=== PATIENT | male | born 1985 ===

== ENCOUNTER 2023-04-02 18:19 | Inpatient (IN) | payer OTHER, SELFPAY ==
[2023-04-02 19:33] LABS: MANUAL DIFF FLAG NO
[2023-04-02 19:38] LABS: Basophils Percent Auto 0.4 % (0-2); Eosinophils Absolute Auto 0.5 X10*3/uL (0.0-0.4); Eosinophils Percent Auto 5.4 % (0-4); Hematocrit 47.5 % (42.0-52.0); Hemoglobin 16.1 g/dl (14.0-18.0); Imm Gran Abs Auto 0.08 X10*3/uL (0.00-0.03); Imm Gran Pct Auto 0.8 % (0.0-0.4); Lymphocytes Absolute Auto 2.9 X10*3/uL (1.2-4.9); Lymphocytes Percent Auto 30.1 % (20-40); Mean Corpuscular HGB Conc 33.9 g/dl (31.0-36.0); Mean Corpuscular Volume 94.4 fL (80.0-98.0); Mean Platelet Volume 10.5 fL (9.4-12.4); Monocytes Absolute Auto 0.7 X10*3/uL (0.1-1.2); Monocytes Percent Auto 7.2 % (2-11); Neutrophils Absolute Auto 5.4 x10*3/uL (2.0-8.3); Neutrophils Percent Auto 56.1 % (45-73); Platelet Count 207 X10*3/uL (160-400); Red Blood Count 5.03 X10*6/uL (4.60-5.80); White Blood Count 9.7 X10*3/uL (4.8-10.8)
[2023-04-02 20:50] VITALS: BP 144/70; PULSE 87; RESP 18; TEMP 36.7; O2SAT 100
[2023-04-02] MEDS: Gabapentin 300 MG CAPSULE PO (21:15)
[2023-04-02] MEDS: hydrOXYzine HCL 50 MG TABLET PO (21:15)
[2023-04-02] MEDS: clonazePAM 1 MG TABLET PO (21:15)
[2023-04-02] MEDS: cloNIDine HCL 0.1 MG TABLET PO (21:15)
[2023-04-02 21:17] VITALS: BMI 18.3
[2023-04-02] MEDS: diphenhydrAMINE HCL 25 MG CAPSULE 50 MG PO (21:26)
[2023-04-02] MEDS: Buprenorphine HCL 8 MG TAB.SUBL SUBLINGUAL (21:26)
[2023-04-02] MEDS: hydrOXYzine HCL 25 MG TABLET PO (23:29)
[2023-04-02] MEDS: traZODone HCL 50 MG TABLET PO (23:29)
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
[2023-04-03 08:00] VITALS: BP 105/74; PULSE 97; RESP 18; TEMP 36.3; O2SAT 99
[2023-04-03] MEDS: DULoxetine HCl 30 MG CAPSULE.DR PO (08:44)
[2023-04-03] MEDS: cloNIDine HCL 0.1 MG TABLET PO ×3 (08:45→21:51)
[2023-04-03] MEDS: Buprenorphine HCL 8 MG TAB.SUBL 16 MG SUBLINGUAL (08:45)
[2023-04-03] MEDS: Gabapentin 300 MG CAPSULE PO (08:46)
[2023-04-03] MEDS: hydrOXYzine HCL 50 MG TABLET PO ×2 (08:46→21:51)
[2023-04-03] MEDS: clonazePAM 1 MG TABLET PO ×2 (08:46→21:51)
[2023-04-03] MEDS: Nicotine Polacrilex 2 MG GUM 4 MG BUCCAL ×3 (09:37→17:39)
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
[2023-04-03] MEDS: Gabapentin 400 MG CAPSULE PO ×2 (14:45→21:51)
[2023-04-03] MEDS: Acetaminophen 325 MG TABLET 650 MG PO (17:38)
[2023-04-03 21:40] VITALS: BP 132/58; PULSE 90; RESP 18; TEMP 36.1; O2SAT 99
[2023-04-03] MEDS: traZODone HCL 50 MG TABLET PO (21:51)
[2023-04-03] MEDS: Buprenorphine HCL 8 MG TAB.SUBL SUBLINGUAL (21:51)
[2023-04-03] MEDS: diphenhydrAMINE HCL 25 MG CAPSULE 50 MG PO (21:52)
[2023-04-03] MEDS: hydrOXYzine HCL 25 MG TABLET PO (21:52)
[2023-04-04 08:00] VITALS: BP 99/54; PULSE 72; RESP 16; TEMP 36.6; O2SAT 98
[2023-04-04] MEDS: hydrOXYzine HCL 50 MG TABLET PO ×2 (08:43→21:18)
[2023-04-04] MEDS: clonazePAM 1 MG TABLET PO ×2 (08:43→21:19)
[2023-04-04] MEDS: DULoxetine HCl 30 MG CAPSULE.DR PO (08:43)
[2023-04-04] MEDS: Gabapentin 400 MG CAPSULE PO ×3 (08:43→21:18)
[2023-04-04] MEDS: cloNIDine HCL 0.1 MG TABLET PO ×3 (08:43→21:23)
[2023-04-04] MEDS: Buprenorphine HCL 8 MG TAB.SUBL 16 MG SUBLINGUAL (08:44)
--- NOTE | 2023-04-04 08:57 | P.PNPSI_ITS ---
Subjective Subjective Date of Service: 04/04/23 Reason For Visit: Depression Subjective Notes: Conditional Voluntary and 3 Day Healthcare Proxy: No Guardianship: No Medical Problems Affecting Mental Status: No Interim History: Patient was seen and discussed in rounds today. Records and plans were reviewed. He refused his admission blood workup because he is very afraid of needles. He was recently hospitalized and did have blood work and denied any abnormalities being reported to him. He states that the increase of gabapentin by the hospitalists was slightly beneficial. He continues to complex of lot of depression. He has been visible with some social interactions. No active SI reported. Eating adequately. No changes were made today Medication Compliance: Yes Side effects from medications: No Attending Groups: Intermittent Review of Systems Review of Systems Back pain Yes all other systems are reviewed and are negative Mental Status Exam Mental Status Exam Narrative: In today's visit he is alert, oriented and minimally interactive. Soft-spoken speech. Minimal eye contact. Affect is subdued and constricted. No signs of psychosis. No delusions. No active SI. Cognitively intact. Judgment is intact Diagnostics Vital Signs (24Hr): Vital Signs - 24 hr 04/03/23 21:40 Temperature 96.9 F Pulse Rate 90 Respiratory Rate 18 Blood Pressure 132/58 L Pulse Oximetry 99 Oxygen Delivery Method Room Air BMI result Body Mass Index 18.3 Labs 04/02/23 19:24 Labs: Laboratory Results - last 48 hr 04/02/23 19:24 WBC 9.7 RBC 5.03 Hgb 16.1 Hct 47.5 MCV 94.4 MCH 32.0 MCHC 33.9 RDW 13.0 Plt Count 207 MPV 10.5 Immature Gran % (Auto) 0.8 H Neut % (Auto) 56.1 Lymph % (Auto) 30.1 [place] % (Auto) 7.2 Eos % (Auto) 5.4 H Baso % (Auto) 0.4 Lymph # (Auto) 2.9 [place] # (Auto) 0.7 Eos # (Auto) 0.5 H Baso # (Auto) 0.0 Abs Immat Gran (auto) 0.08 H Absolute Neuts (auto) 5.4 Absolute Nucleated RBC 0.000 Nucleated RBC % (auto) 0.0 Medications Medications Current Medications Acetaminophen (Acetaminophen 325 Mg Tablet) 650 mg PO Q6H PRN PRN Reason: Headache/Pain Mild Scale (1-3) Last Admin: 04/03/23 17:38 Dose: 650 mg Al Hydroxide/Mg Hydroxide (Magnesium Hydrox/Alum Hydrox 30 Ml Oral.Susp) 30 ml PO Q6H PRN PRN Reason: Heartburn/Nausea Albuterol Sulfate (Albuterol Sulfate 90 Mcg 8 Gm Inhaler) 2 puff INHALE Q4H PRN PRN Reason: Shortness Of Breath Or Wheezing Buprenorphine HCl (Buprenorphine Hcl 8 Mg Tab.Subl) 8 mg SUBLINGUAL BEDTIME [facility] Last Admin: 04/03/23 21:51 Dose: 8 mg Buprenorphine HCl (Buprenorphine Hcl 8 Mg Tab.Subl) 16 mg SUBLINGUAL DAILY [facility] Last Admin: 04/04/23 08:44 Dose: 16 mg Clonazepam (Clonazepam 1 Mg Tablet) 1 mg PO BID [facility] Last Admin: 04/04/23 08:43 Dose: 1 mg Clonidine HCl (Clonidine Hcl 0.1 Mg Tablet) 0.1 mg PO TID [facility]; Protocol Last Admin: 04/04/23 08:43 Dose: 0.1 mg Diphenhydramine HCl (Diphenhydramine Hcl 25 Mg Capsule) 50 mg PO BEDTIME PRN PRN Reason: Insomnia Last Admin: 04/03/23 21:52 Dose: 50 mg Duloxetine HCl (Duloxetine Hcl 30 Mg Capsule.Dr) 30 mg PO DAILY [facility] Last Admin: 04/04/23 08:43 Dose: 30 mg Gabapentin (Gabapentin 400 Mg Capsule) 400 mg PO TID [facility] Last Admin: 04/04/23 08:43 Dose: 400 mg Hydroxyzine HCl (Hydroxyzine Hcl 25 Mg Tablet) 25 mg PO Q6H PRN PRN Reason: Anxiety Last Admin: 04/03/23 21:52 Dose: 25 mg Hydroxyzine HCl (Hydroxyzine Hcl 50 Mg Tablet) 50 mg PO BID [facility] Last Admin: 04/04/23 08:43 Dose: 50 mg Magnesium Hydroxide (Milk Of Magnesia 30 Ml Oral.Susp) 30 ml PO DAILY PRN PRN Reason: Constipation Nicotine (Nicotine 21 Mg Patch.Td24) 21 mg TRANSDERMA DAILY PRN PRN Reason: smoking cessation Nicotine Polacrilex (Nicotine Polacrilex 2 Mg Gum) 4 mg BUCCAL Q2H PRN PRN Reason: Nicotine Cravings Last Admin: 04/03/23 17:39 Dose: 4 mg Nicotine Polacrilex (Nicotine Polacrilex 2 Mg Gum) 4 mg BUCCAL Q2H PRN PRN Reason: nicotine cravings Pt Own ( Lisdexamfetamine [ Vyvanse] 20 Mg Capsule) 20 mg PO DAILY [facility] Last Admin: 04/04/23 08:42 Dose: 20 mg Olanzapine (Olanzapine 5 Mg Tablet) 5 mg PO TID PRN PRN Reason: agitation Trazodone HCl (Trazodone Hcl 50 Mg Tablet) 50 mg PO BEDTIME MRX1 PRN PRN Reason: Insomnia Last Admin: 04/03/23 21:51 Dose: 50 mg Allergies Allergies Allergy/AdvReac Type Severity Reaction Status Date / Time buprenorphine [From Suboxone] Allergy Unknown Verified 04/02/23 18:37 ibuprofen [From Motrin] Allergy Unknown Verified 04/02/23 18:37 naloxone [From Suboxone] Allergy Unknown Verified 04/02/23 18:37 naltrexone [From Vivitrol] Allergy Unknown Verified 04/02/23 18:37 Penicillins Allergy Unknown Verified 04/02/23 18:37 Assessment & Plan Assessment & Plan (1) Major depression: Status: Acute Code(s): F32.9 - Major depressive disorder, single episode, unspecified Plan 38-year-old man admitted to [facility] for psychiatric care Depression/ anxiety Management as per psychiatric team Asthma Albuterol as needed Chronic back pain Will increase gabapentin to 400 mg t.i.d. May use warm or cool compress to back for pain relief 04/04: Continue current regimen and plans Reason for continued inpatient stay Substantial Risk for: harm to self Time Spent With Patient Time: Total time managing care of this patient today ____ minutes.
[2023-04-04] MEDS: Nicotine Polacrilex 2 MG GUM 4 MG BUCCAL (09:55)
[2023-04-04] MEDS: Lidocaine 4 % Patch ADH..PATCH 1 PATCH TRANSDERMA (09:56)
[2023-04-04] MEDS: Acetaminophen 325 MG TABLET 650 MG PO (11:54)
[2023-04-04 14:05] VITALS: BP 116/64
[2023-04-04 21:05] VITALS: BP 107/62; PULSE 91; RESP 18; TEMP 36.6; O2SAT 97
[2023-04-04] MEDS: diphenhydrAMINE HCL 25 MG CAPSULE 50 MG PO (21:17)
[2023-04-04] MEDS: hydrOXYzine HCL 25 MG TABLET PO (21:19)
[2023-04-04] MEDS: traZODone HCL 50 MG TABLET PO (21:19)
[2023-04-04] MEDS: Buprenorphine HCL 8 MG TAB.SUBL SUBLINGUAL (21:19)
[2023-04-05 08:26] VITALS: BP 115/72; PULSE 72; RESP 20; TEMP 36.6; O2SAT 96
[2023-04-05] MEDS: Acetaminophen 325 MG TABLET 650 MG PO ×2 (08:52→20:58)
[2023-04-05] MEDS: cloNIDine HCL 0.1 MG TABLET PO ×3 (08:52→20:44)
[2023-04-05] MEDS: hydrOXYzine HCL 50 MG TABLET PO ×2 (08:52→20:43)
[2023-04-05] MEDS: DULoxetine HCl 30 MG CAPSULE.DR PO (08:52)
[2023-04-05] MEDS: Gabapentin 400 MG CAPSULE PO (08:52)
[2023-04-05] MEDS: clonazePAM 1 MG TABLET PO ×2 (08:52→20:44)
[2023-04-05] MEDS: Buprenorphine HCL 8 MG TAB.SUBL 16 MG SUBLINGUAL (08:53)
--- NOTE | 2023-04-05 10:30 | P.PNPSI_ITS ---
Subjective Subjective Date of Service: 04/05/23 Reason For Visit: Depression Subjective Notes: Conditional Voluntary and 3 Day Healthcare Proxy: No Guardianship: No Medical Problems Affecting Mental Status: No Interim History: Patient was seen and discussed in rounds today. Records and plans were reviewed. He talked about a difficult phone call with an ex-girlfriend who has the caballero to his apartment and he is anxious about the day of discharge and getting his caballero back. Staff at suggested that he should probably stop calling her for now until he knows his plans more clearly after tomorrow. He continues to complain of back pain. Gabapentin will be increased to 600 mg t.i.d.. He also continues to feel depressed over his situation. No other complaints. No other changes were made today Medication Compliance: Yes Side effects from medications: No Attending Groups: Intermittent Review of Systems Review of Systems Back pain Yes all other systems are reviewed and are negative Diagnostics Vital Signs (24Hr): Vital Signs - 24 hr 04/04/23 14:05 04/04/23 21:05 04/05/23 08:26 Temperature 97.8 F 97.9 F Pulse Rate 91 72 Respiratory Rate 18 20 Blood Pressure 116/64 107/62 115/72 Pulse Oximetry 97 96 Oxygen Delivery Method Room Air Room Air BMI result Body Mass Index 18.3 Labs 04/02/23 19:24 Medications Medications Current Medications Acetaminophen (Acetaminophen 325 Mg Tablet) 650 mg PO Q6H PRN PRN Reason: Headache/Pain Mild Scale (1-3) Last Admin: 04/05/23 08:52 Dose: 650 mg Al Hydroxide/Mg Hydroxide (Magnesium Hydrox/Alum Hydrox 30 Ml Oral.Susp) 30 ml PO Q6H PRN PRN Reason: Heartburn/Nausea Albuterol Sulfate (Albuterol Sulfate 90 Mcg 8 Gm Inhaler) 2 puff INHALE Q4H PRN PRN Reason: Shortness Of Breath Or Wheezing Buprenorphine HCl (Buprenorphine Hcl 8 Mg Tab.Subl) 8 mg SUBLINGUAL BEDTIME [facility] Last Admin: 04/04/23 21:19 Dose: 8 mg Buprenorphine HCl (Buprenorphine Hcl 8 Mg Tab.Subl) 16 mg SUBLINGUAL DAILY [facility] Last Admin: 04/05/23 08:53 Dose: 16 mg Clonazepam (Clonazepam 1 Mg Tablet) 1 mg PO BID [facility] Last Admin: 04/05/23 08:52 Dose: 1 mg Clonidine HCl (Clonidine Hcl 0.1 Mg Tablet) 0.1 mg PO TID [facility]; Protocol Last Admin: 04/05/23 08:52 Dose: 0.1 mg Diphenhydramine HCl (Diphenhydramine Hcl 25 Mg Capsule) 50 mg PO BEDTIME PRN PRN Reason: Insomnia Last Admin: 04/04/23 21:17 Dose: 50 mg Duloxetine HCl (Duloxetine Hcl 30 Mg Capsule.Dr) 30 mg PO DAILY [facility] Last Admin: 04/05/23 08:52 Dose: 30 mg Hydroxyzine HCl (Hydroxyzine Hcl 25 Mg Tablet) 25 mg PO Q6H PRN PRN Reason: Anxiety Last Admin: 04/04/23 21:19 Dose: 25 mg Hydroxyzine HCl (Hydroxyzine Hcl 50 Mg Tablet) 50 mg PO BID [facility] Last Admin: 04/05/23 08:52 Dose: 50 mg Lidocaine (Lidocaine 4 % Patch Adh..Patch) 1 patch TRANSDERMA DAILY PRN; Protocol PRN Reason: Pain, Moderate(Pain Scale 4-6) Last Admin: 04/04/23 09:56 Dose: 1 patch Magnesium Hydroxide (Milk Of Magnesia 30 Ml Oral.Susp) 30 ml PO DAILY PRN PRN Reason: Constipation Nicotine (Nicotine 21 Mg Patch.Td24) 21 mg TRANSDERMA DAILY PRN PRN Reason: smoking cessation Nicotine Polacrilex (Nicotine Polacrilex 2 Mg Gum) 4 mg BUCCAL Q2H PRN PRN Reason: Nicotine Cravings Last Admin: 04/04/23 09:55 Dose: 4 mg Nicotine Polacrilex (Nicotine Polacrilex 2 Mg Gum) 4 mg BUCCAL Q2H PRN PRN Reason: nicotine cravings Pt Own ( Lisdexamfetamine [ Vyvanse] 20 Mg Capsule) 20 mg PO DAILY [facility] Last Admin: 04/05/23 09:04 Dose: 20 mg Olanzapine (Olanzapine 5 Mg Tablet) 5 mg PO TID PRN PRN Reason: agitation Trazodone HCl (Trazodone Hcl 50 Mg Tablet) 50 mg PO BEDTIME MRX1 PRN PRN Reason: Insomnia Last Admin: 04/04/23 21:19 Dose: 50 mg Allergies Allergies Allergy/AdvReac Type Severity Reaction Status Date / Time buprenorphine [From Suboxone] Allergy Unknown Verified 04/02/23 18:37 ibuprofen [From Motrin] Allergy Unknown Verified 04/02/23 18:37 naloxone [From Suboxone] Allergy Unknown Verified 04/02/23 18:37 naltrexone [From Vivitrol] Allergy Unknown Verified 04/02/23 18:37 Penicillins Allergy Unknown Verified 04/02/23 18:37 Assessment & Plan Assessment & Plan (1) Major depression: Status: Acute Code(s): F32.9 - Major depressive disorder, single episode, unspecified Plan 38-year-old man admitted to for psychiatric care Depression/ anxiety Management as per psychiatric team Asthma Albuterol as needed Chronic back pain Will increase gabapentin to 400 mg t.i.d. May use warm or cool compress to back for pain relief 04/04: Continue current regimen and plans 04/05: Continue current regimen and plans. Increase gabapentin to 600 mg t.i.d. Reason for continued inpatient stay Substantial Risk for: harm to self Time Spent With Patient Time: Total time managing care of this patient today ____ minutes.
[2023-04-05] MEDS: Gabapentin 300 MG CAPSULE 600 MG PO ×2 (14:42→20:44)
[2023-04-05] MEDS: Buprenorphine HCL 8 MG TAB.SUBL SUBLINGUAL (20:42)
[2023-04-05] MEDS: traZODone HCL 50 MG TABLET PO ×2 (20:43→22:34)
[2023-04-05] MEDS: diphenhydrAMINE HCL 25 MG CAPSULE 50 MG PO (20:44)
[2023-04-05] MEDS: Lidocaine 4 % Patch ADH..PATCH 1 PATCH TRANSDERMA (20:57)
[2023-04-05] MEDS: Nicotine Polacrilex 2 MG GUM 4 MG BUCCAL (20:58)
[2023-04-05 21:03] VITALS: BP 108/60; PULSE 96; TEMP 36.6; O2SAT 98
[2023-04-05] MEDS: hydrOXYzine HCL 25 MG TABLET PO (22:34)
[2023-04-06] MEDS: clonazePAM 1 MG TABLET PO ×2 (08:13→20:37)
[2023-04-06] MEDS: hydrOXYzine HCL 50 MG TABLET PO ×2 (08:13→20:30)
[2023-04-06] MEDS: Gabapentin 300 MG CAPSULE 600 MG PO ×3 (08:13→20:36)
[2023-04-06] MEDS: cloNIDine HCL 0.1 MG TABLET PO ×3 (08:13→20:36)
[2023-04-06] MEDS: DULoxetine HCl 30 MG CAPSULE.DR PO (08:13)
[2023-04-06] MEDS: Buprenorphine HCL 8 MG TAB.SUBL 16 MG SUBLINGUAL (08:13)
[2023-04-06 08:54] VITALS: BP 134/76; PULSE 80; RESP 18; TEMP 36.2; O2SAT 100
--- NOTE | 2023-04-06 09:58 | HO.PSYCHPN ---
Subjective Subjective Date of Service: 04/06/23 Reason For Visit: Depression Subjective Notes: 3 Day Interim History: Reviewed in team and . Patient reports feeling depressed and anxious today. Pt stated, I'm sad because my girlfriend cheated on me . He denies suicidal ideation; stated, I tried to stab myself because my girlfriend told me to do it. It was wrong, I shouldn't have dont it. The knife didn't cut me or anything. I want to live; I want to have my life back and someone to love me. I also wouldn't kill myself because I don't want to go to hel . Patient reports he is looking forward to discharge because he would like to use my section 8 housing voucher since I haven't been looking for new places . He reports he plans on following up with his outpatient psychiatric providers. Medication Compliance: Yes Side effects from medications: No Attending Groups: Intermittent Review of Systems Constitutional: Reports as per HPI Eyes: Reports as per HPI Reports as per HPI Cardiovascular: Reports as per HPI Respiratory: Reports as per HPI Gastrointestinal: Reports as per HPI Genitourinary: Reports as per HPI Musculoskeletal: Reports as per HPI Skin/Breast: Reports as per HPI Reports as per HPI Psychiatric: Reports as per HPI Endocrine: Reports as per HPI Hematologic/Lymphatic: Reports as per HPI Allergic/Immunologic: Reports as per HPI Mental Status Exam Mental Status Exam Narrative: Pt is alert and oriented; behavior is cooperative, friendly and calm; dressed in casual attire; mood is described as depressed ; eye contact appropriate; Speech is normal rate, volume and prosody and not pressured; no psychomotor agitation/retardation present; thought process is organized and goal directed; Thought content is on tx; otherwise pertinent to relevant topics and without any delusional content, paranoid ideations or grandiosity; denies SI/HI. There is no evidence of perceptual disturbance. Patients insight and judgment are fair. Diagnostics Vital Signs (24Hr): Vital Signs - 24 hr 04/05/23 21:03 04/06/23 08:54 Temperature 97.8 F 97.2 F Pulse Rate 96 80 Respiratory Rate 18 Blood Pressure 108/60 134/76 Pulse Oximetry 98 100 Oxygen Delivery Method Room Air Room Air BMI result Body Mass Index 18.3 Labs 04/02/23 19:24 Medications Medications Current Medications Acetaminophen (Acetaminophen 325 Mg Tablet) 650 mg PO Q6H PRN PRN Reason: Headache/Pain Mild Scale (1-3) Last Admin: 04/05/23 20:58 Dose: 650 mg Al Hydroxide/Mg Hydroxide (Magnesium Hydrox/Alum Hydrox 30 Ml Oral.Susp) 30 ml PO Q6H PRN PRN Reason: Heartburn/Nausea Albuterol Sulfate (Albuterol Sulfate 90 Mcg 8 Gm Inhaler) 2 puff INHALE Q4H PRN PRN Reason: Shortness Of Breath Or Wheezing Buprenorphine HCl (Buprenorphine Hcl 8 Mg Tab.Subl) 8 mg SUBLINGUAL BEDTIME [facility] Last Admin: 04/05/23 20:42 Dose: 8 mg Buprenorphine HCl (Buprenorphine Hcl 8 Mg Tab.Subl) 16 mg SUBLINGUAL DAILY [facility] Last Admin: 04/06/23 08:13 Dose: 16 mg Clonazepam (Clonazepam 1 Mg Tablet) 1 mg PO BID [facility] Last Admin: 04/06/23 08:13 Dose: 1 mg Clonidine HCl (Clonidine Hcl 0.1 Mg Tablet) 0.1 mg PO TID [facility]; Protocol Last Admin: 04/06/23 08:13 Dose: 0.1 mg Diphenhydramine HCl (Diphenhydramine Hcl 25 Mg Capsule) 50 mg PO BEDTIME PRN PRN Reason: Insomnia Last Admin: 04/05/23 20:44 Dose: 50 mg Duloxetine HCl (Duloxetine Hcl 30 Mg Capsule.Dr) 30 mg PO DAILY [facility] Last Admin: 04/06/23 08:13 Dose: 30 mg Gabapentin (Gabapentin 300 Mg Capsule) 600 mg PO TID [facility] Last Admin: 04/06/23 08:13 Dose: 600 mg Hydroxyzine HCl (Hydroxyzine Hcl 25 Mg Tablet) 25 mg PO Q6H PRN PRN Reason: Anxiety Last Admin: 04/05/23 22:34 Dose: 25 mg Hydroxyzine HCl (Hydroxyzine Hcl 50 Mg Tablet) 50 mg PO BID [facility] Last Admin: 04/06/23 08:13 Dose: 50 mg Lidocaine (Lidocaine 4 % Patch Adh..Patch) 1 patch TRANSDERMA DAILY PRN; Protocol PRN Reason: Pain, Moderate(Pain Scale 4-6) Last Admin: 04/05/23 20:57 Dose: 1 patch Magnesium Hydroxide (Milk Of Magnesia 30 Ml Oral.Susp) 30 ml PO DAILY PRN PRN Reason: Constipation Nicotine (Nicotine 21 Mg Patch.Td24) 21 mg TRANSDERMA DAILY PRN PRN Reason: smoking cessation Nicotine Polacrilex (Nicotine Polacrilex 2 Mg Gum) 4 mg BUCCAL Q2H PRN PRN Reason: Nicotine Cravings Last Admin: 04/05/23 20:58 Dose: 4 mg Nicotine Polacrilex (Nicotine Polacrilex 2 Mg Gum) 4 mg BUCCAL Q2H PRN PRN Reason: nicotine cravings Pt Own ( Lisdexamfetamine [ Vyvanse] 20 Mg Capsule) 20 mg PO DAILY [facility] Last Admin: 04/06/23 08:12 Dose: 20 mg Olanzapine (Olanzapine 5 Mg Tablet) 5 mg PO TID PRN PRN Reason: agitation Trazodone HCl (Trazodone Hcl 50 Mg Tablet) 50 mg PO BEDTIME MRX1 PRN PRN Reason: Insomnia Last Admin: 04/05/23 22:34 Dose: 50 mg Allergies Allergies Allergy/AdvReac Type Severity Reaction Status Date / Time buprenorphine [From Suboxone] Allergy Unknown Verified 04/02/23 18:37 ibuprofen [From Motrin] Allergy Unknown Verified 04/02/23 18:37 naloxone [From Suboxone] Allergy Unknown Verified 04/02/23 18:37 naltrexone [From Vivitrol] Allergy Unknown Verified 04/02/23 18:37 Penicillins Allergy Unknown Verified 04/02/23 18:37 Assessment & Plan Assessment & Plan (1) Major depression: Status: Acute Code(s): F32.9 - Major depressive disorder, single episode, unspecified Plan 38-year-old man admitted to for psychiatric care Depression/ anxiety Management as per psychiatric team Asthma Albuterol as needed Chronic back pain Will increase gabapentin to 400 mg t.i.d. May use warm or cool compress to back for pain relief 04/04: Continue current regimen and plans 04/05: Continue current regimen and plans. Increase gabapentin to 600 mg t.i.d. 04/06: Patient reports feeling depressed and anxious today. Pt stated, I'm sad because my girlfriend cheated on me . He denies suicidal ideation; stated, I tried to stab myself because my girlfriend told me to do it. It was wrong, I shouldn't have dont it. The knife didn't cut me or anything. I want to live; I want to have my life back and someone to love me. I also wouldn't kill myself because I don't want to go to hel . Patient reports he is looking forward to discharge because he would like to use my section 8 housing voucher since I haven't been looking for new places . He reports he plans on following up with his outpatient psychiatric providers. Increase Cymbalta to 40mg PO daily; risks/benefits discussed. Patient educated on: diagnosis, medication risk/benefits and therapeutic strategies Informed Consent: understands Reason for continued inpatient stay Substantial Risk for: med/psych decompensation Time Spent With Patient Time: Total time managing care of this patient today _30___ minutes.
[2023-04-06] MEDS: Lidocaine 4 % Patch ADH..PATCH 1 PATCH TRANSDERMA (12:18)
[2023-04-06] MEDS: hydrOXYzine HCL 25 MG TABLET PO (12:18)
[2023-04-06] MEDS: Acetaminophen 325 MG TABLET 650 MG PO ×2 (12:19→20:38)
[2023-04-06] MEDS: OLANZapine 5 MG TABLET PO ×2 (12:19→20:42)
[2023-04-06 19:50] VITALS: BP 137/67; PULSE 96; RESP 16; TEMP 36.9; O2SAT 96
[2023-04-06] MEDS: Buprenorphine HCL 8 MG TAB.SUBL SUBLINGUAL (20:36)
[2023-04-06] MEDS: traZODone HCL 50 MG TABLET PO (20:37)
[2023-04-06] MEDS: diphenhydrAMINE HCL 25 MG CAPSULE 50 MG PO (20:50)
[2023-04-07 08:15] VITALS: BP 119/67; PULSE 89; RESP 16; TEMP 36.7; O2SAT 98
[2023-04-07] MEDS: Acetaminophen 325 MG TABLET 650 MG PO (08:52)
[2023-04-07] MEDS: Gabapentin 300 MG CAPSULE 600 MG PO ×3 (08:52→20:39)
[2023-04-07] MEDS: cloNIDine HCL 0.1 MG TABLET PO ×3 (08:53→20:39)
[2023-04-07] MEDS: clonazePAM 1 MG TABLET PO ×2 (08:54→20:40)
[2023-04-07] MEDS: Buprenorphine HCL 8 MG TAB.SUBL 16 MG SUBLINGUAL (08:54)
[2023-04-07] MEDS: hydrOXYzine HCL 50 MG TABLET PO (08:54)
--- NOTE | 2023-04-07 08:59 | P.PNPSI_ITS ---
Subjective Subjective Date of Service: 04/07/23 Reason For Visit: Depression Subjective Notes: 3 Day Interim History: Reviewed in team and . Patient reports feeling okay today. Pt stated, I'm anxious cause I left my caballero card and cat with my ex and she's not answering her phone. I know I have to separate myself from the people dragging me down . Pt reports he is looking forward to being discharged tomorrow and plans on finding a new apartment. Pt s tated, I don't need refills on my meds because my psychiatrist already gives them to me . Pt denies SI/HI/VH/AH at this time. Medication Compliance: Yes Side effects from medications: No Attending Groups: Intermittent Review of Systems Review of Systems Back pain Yes all other systems are reviewed and are negative Constitutional: Reports as per HPI Eyes: Reports as per HPI Reports as per HPI Cardiovascular: Reports as per HPI Respiratory: Reports as per HPI Gastrointestinal: Reports as per HPI Genitourinary: Reports as per HPI Musculoskeletal: Reports as per HPI Skin/Breast: Reports as per HPI Reports as per HPI Psychiatric: Reports as per HPI Endocrine: Reports as per HPI Hematologic/Lymphatic: Reports as per HPI Allergic/Immunologic: Reports as per HPI Mental Status Exam Mental Status Exam Narrative: Pt is alert and oriented; behavior is cooperative, friendly and calm; dressed in casual attire; mood is described as okay ; eye contact appropriate; Speech is normal rate, volume and prosody and not pressured; no psychomotor agitation/retardation present; thought process is organized and goal directed; Thought content is on tx; otherwise pertinent to relevant topics and without any delusional content, paranoid ideations or grandiosity; denies SI/HI. There is no evidence of perceptual disturbance. Patients insight and judgment are fair. Diagnostics Vital Signs (24Hr): Vital Signs - 24 hr 04/06/23 19:50 Temperature 98.4 F Pulse Rate 96 Respiratory Rate 16 Blood Pressure 137/67 Pulse Oximetry 96 Oxygen Delivery Method Room Air BMI result Body Mass Index 18.3 Labs 04/02/23 19:24 Medications Medications Current Medications Acetaminophen (Acetaminophen 325 Mg Tablet) 650 mg PO Q6H PRN PRN Reason: Headache/Pain Mild Scale (1-3) Last Admin: 04/07/23 08:52 Dose: 650 mg Al Hydroxide/Mg Hydroxide (Magnesium Hydrox/Alum Hydrox 30 Ml Oral.Susp) 30 ml PO Q6H PRN PRN Reason: Heartburn/Nausea Albuterol Sulfate (Albuterol Sulfate 90 Mcg 8 Gm Inhaler) 2 puff INHALE Q4H PRN PRN Reason: Shortness Of Breath Or Wheezing Buprenorphine HCl (Buprenorphine Hcl 8 Mg Tab.Subl) 8 mg SUBLINGUAL BEDTIME [facility] Last Admin: 04/06/23 20:36 Dose: 8 mg Buprenorphine HCl (Buprenorphine Hcl 8 Mg Tab.Subl) 16 mg SUBLINGUAL DAILY [facility] Last Admin: 04/07/23 08:54 Dose: 16 mg Clonazepam (Clonazepam 1 Mg Tablet) 1 mg PO BID [facility] Last Admin: 04/07/23 08:54 Dose: 1 mg Clonidine HCl (Clonidine Hcl 0.1 Mg Tablet) 0.1 mg PO TID [facility]; Protocol Last Admin: 04/07/23 08:53 Dose: 0.1 mg Diphenhydramine HCl (Diphenhydramine Hcl 25 Mg Capsule) 50 mg PO BEDTIME PRN PRN Reason: Insomnia Last Admin: 04/06/23 20:50 Dose: 50 mg Duloxetine HCl (Duloxetine Hcl 20 Mg Capsule.Dr) 40 mg PO DAILY [facility] Gabapentin (Gabapentin 300 Mg Capsule) 600 mg PO TID [facility] Last Admin: 04/07/23 08:52 Dose: 600 mg Hydroxyzine HCl (Hydroxyzine Hcl 25 Mg Tablet) 25 mg PO Q6H PRN PRN Reason: Anxiety Last Admin: 04/06/23 12:18 Dose: 25 mg Hydroxyzine HCl (Hydroxyzine Hcl 50 Mg Tablet) 50 mg PO BID [facility] Last Admin: 04/07/23 08:54 Dose: 50 mg Lidocaine (Lidocaine 4 % Patch Adh..Patch) 1 patch TRANSDERMA DAILY PRN; Protocol PRN Reason: Pain, Moderate(Pain Scale 4-6) Last Admin: 04/06/23 12:18 Dose: 1 patch Magnesium Hydroxide (Milk Of Magnesia 30 Ml Oral.Susp) 30 ml PO DAILY PRN PRN Reason: Constipation Nicotine (Nicotine 21 Mg Patch.Td24) 21 mg TRANSDERMA DAILY PRN PRN Reason: smoking cessation Nicotine Polacrilex (Nicotine Polacrilex 2 Mg Gum) 4 mg BUCCAL Q2H PRN PRN Reason: Nicotine Cravings Last Admin: 04/05/23 20:58 Dose: 4 mg Nicotine Polacrilex (Nicotine Polacrilex 2 Mg Gum) 4 mg BUCCAL Q2H PRN PRN Reason: nicotine cravings Pt Own ( Lisdexamfetamine [ Vyvanse] 20 Mg Capsule) 20 mg PO DAILY [facility] Last Admin: 04/07/23 08:51 Dose: 20 mg Olanzapine (Olanzapine 5 Mg Tablet) 5 mg PO TID PRN PRN Reason: agitation Last Admin: 04/06/23 20:42 Dose: 5 mg Trazodone HCl (Trazodone Hcl 50 Mg Tablet) 50 mg PO BEDTIME MRX1 PRN PRN Reason: Insomnia Last Admin: 04/06/23 20:37 Dose: 50 mg Allergies Allergies Allergy/AdvReac Type Severity Reaction Status Date / Time buprenorphine [From Suboxone] Allergy Unknown Verified 04/02/23 18:37 ibuprofen [From Motrin] Allergy Unknown Verified 04/02/23 18:37 naloxone [From Suboxone] Allergy Unknown Verified 04/02/23 18:37 naltrexone [From Vivitrol] Allergy Unknown Verified 04/02/23 18:37 Penicillins Allergy Unknown Verified 04/02/23 18:37 Assessment & Plan Assessment & Plan (1) Major depression: Status: Acute Code(s): F32.9 - Major depressive disorder, single episode, unspecified Plan 38-year-old man admitted to for psychiatric care Depression/ anxiety Management as per psychiatric team Asthma Albuterol as needed Chronic back pain Will increase gabapentin to 400 mg t.i.d. May use warm or cool compress to back for pain relief 04/04: Continue current regimen and plans 04/05: Continue current regimen and plans. Increase gabapentin to 600 mg t.i.d. 04/06: Patient reports feeling depressed and anxious today. Pt stated, I'm sad because my girlfriend cheated on me . He denies suicidal ideation; stated, I tried to stab myself because my girlfriend told me to do it. It was wrong, I shouldn't have dont it. The knife didn't cut me or anything. I want to live; I want to have my life back and someone to love me. I also wouldn't kill myself because I don't want to go to hell . Patient reports he is looking forward to discharge because he would like to use my section 8 housing voucher since I haven't been looking for new places . He reports he plans on following up with his outpatient psychiatric providers. Increase Cymbalta to 40mg PO daily; risks/benefits discussed. 04/07: Patient reports feeling okay today. Pt stated, I'm anxious cause I left my caballero card and cat with my ex and she's not answering her phone. I know I have to separate myself from the people dragging me down . Pt reports he is looking forward to being discharged tomorrow and plans on finding a new apartment. Pt stated, I don't need refills on my meds because my psychiatrist already gives them to me . Pt denies SI/HI/VH/AH at this time. Plan to discharge pt tomorrow on 3 day. pt will follow up with outpatient psychiatric providers. Patient educated on: diagnosis, medication risk/benefits and therapeutic strategies Informed Consent: understands Reason for continued inpatient stay Substantial Risk for: med/psych decompensation Time Spent With Patient Time: Total time managing care of this patient today _30___ minutes.
[2023-04-07] MEDS: DULoxetine HCl 20 MG CAPSULE.DR 40 MG PO (09:53)
[2023-04-07 11:04] LABS: TSH reflex Free T4 2.37 uIU/mL (0.32-4.0)
[2023-04-07 15:36] VITALS: BP 109/56; PULSE 101
[2023-04-07] MEDS: Nicotine Polacrilex 2 MG GUM 4 MG BUCCAL ×2 (15:42→18:11)
[2023-04-07 18:00] VITALS: BP 136/76; PULSE 106; RESP 16; TEMP 36.3; O2SAT 99
[2023-04-07] MEDS: Lidocaine 4 % Patch ADH..PATCH 1 PATCH TRANSDERMA (20:38)
[2023-04-07] MEDS: OLANZapine 5 MG TABLET PO (20:39)
[2023-04-07] MEDS: diphenhydrAMINE HCL 25 MG CAPSULE 50 MG PO (20:39)
[2023-04-07] MEDS: traZODone HCL 50 MG TABLET PO (20:39)
[2023-04-07] MEDS: Buprenorphine HCL 8 MG TAB.SUBL SUBLINGUAL (20:41)
[2023-04-08] MEDS: Acetaminophen 325 MG TABLET 650 MG PO ×2 (00:28→09:20)
[2023-04-08 07:50] VITALS: BP 121/91; PULSE 90; RESP 16; TEMP 36.9; O2SAT 97
[2023-04-08] MEDS: DULoxetine HCl 20 MG CAPSULE.DR 40 MG PO (08:40)
[2023-04-08] MEDS: cloNIDine HCL 0.1 MG TABLET PO (08:40)
[2023-04-08] MEDS: Gabapentin 300 MG CAPSULE 600 MG PO (08:41)
[2023-04-08] MEDS: hydrOXYzine HCL 50 MG TABLET PO (08:42)
[2023-04-08] MEDS: Buprenorphine HCL 8 MG TAB.SUBL 16 MG SUBLINGUAL (08:43)
[2023-04-08] MEDS: clonazePAM 1 MG TABLET PO (09:18)
--- NOTE | 2023-04-08 09:43 | PM.PSYDC ---
DS: Providers Provider Date of Service: 04/08/23 Date of admission: 04/02/23 18:19 Date of discharge: 04/08/23 Primary care physician: Unknown Physician Admitting clinician: Brenda Leonardo Attending physician on admission: Asa Page Consults: 04/02/23 19:07 Consult to Hospitalist Routine Comment: Consulting Provider: Hospitalist Reason For Exam: admission physical Attending physician on discharge: Asa Page Discharging clinician: Brenda Leonardo DS: Diagnosis Discharge Diagnosis (1) Major depression: Status: Acute DS: Medications Discharge Medications Home Medications: Home Medications Medication Instructions Recorded Confirmed albuterol sulfate 90 mcg/actuation 2 puff inhalation Q4H PRN 04/02/23 04/02/23 aerosol inhaler Shortness Of Breath Or Wheezing buprenorphine HCl 8 mg sublingual 8 mg sublingual BEDTIME 04/02/23 04/02/23 tablet buprenorphine HCl 8 mg sublingual 16 mg sublingual QAM 04/02/23 04/02/23 tablet clonazepam 1 mg tablet 1 mg PO BID 04/02/23 04/02/23 clonidine HCl 0.1 mg tablet 0.1 mg PO TID 04/02/23 04/02/23 diphenhydramine HCl 50 mg capsule 50 mg PO BEDTIME PRN Insomnia 04/02/23 04/02/23 hydroxyzine HCl 50 mg tablet 50 mg PO BID 04/02/23 04/02/23 lisdexamfetamine 20 mg capsule 20 mg PO QAM 04/02/23 04/02/23 (Vyvanse) Previous Rx's Medication Instructions Recorded duloxetine 20 mg capsule,delayed 40 mg (2 x 20 mg) PO DAILY 30 days 04/08/23 release #60 caps gabapentin 300 mg capsule 600 mg (2 x 300 mg) PO TID 30 days 04/08/23 #180 caps Mental Status Exam Mental Status Exam Narrative: Pt is alert and oriented; behavior is cooperative, friendly and calm; dressed in casual attire; mood is described as good ; eye contact appropriate; Speech is normal rate, volume and prosody and not pressured; no psychomotor agitation/retardation present; thought process is organized and goal directed; Thought content is on tx; otherwise pertinent to relevant topics and without any delusional content, paranoid ideations or grandiosity; denies SI/HI. There is no evidence of perceptual disturbance. Patients insight and judgment are fair. Data Data Completed and Pending Completed studies during hospitalization [Text1]: 04/02/23 04/07/23 19:24 09:35 WBC 9.7 RBC 5.03 Hgb 16.1 Hct 47.5 MCV 94.4 MCH 32.0 MCHC 33.9 RDW 13.0 Plt Count 207 MPV 10.5 Immature Gran % (Auto) 0.8 H Neut % (Auto) 56.1 Lymph % (Auto) 30.1 [place] % (Auto) 7.2 Eos % (Auto) 5.4 H Baso % (Auto) 0.4 Lymph # (Auto) 2.9 [place] # (Auto) 0.7 Eos # (Auto) 0.5 H Baso # (Auto) 0.0 Abs Immat Gran (auto) 0.08 H Absolute Neuts (auto) 5.4 Absolute Nucleated RBC 0.000 Nucleated RBC % (auto) 0.0 TSH 2.37 DS: Summary Hospital Course Hospital Course: Patient is a 38-year-old white, single, unemployed, disabled, father of 3. This is his 1st [facility] admission and 1 of many, over 10 psychiatric hospitalizations. He was last at [facility] her over 2 weeks ago after a serious overdose of Seroquel. He was treated in the ICU and then transferred to the medical unit there. After discharge he continued to feel depressed, on safe specially in the building he lives in, having been threatened many times etc.. He does have history of opiate dependence but has been clean for 4 years. He was on methadone which was recently switched to Suboxone 16 mg daily and 8 mg at night. He is seen and treated at [facility] in [place]. Current medications include Klonopin 1 mg b.i.d., clonidine 0.1 mg t.i.d., Suboxone, as stated, Cymbalta 30 mg HS which was recently added, gabapentin 300 mg t.i.d. and hydroxyzine 50 mg b.i.d.. He was also recently put on Vyvanse 20 mg daily for ADHD. His treating psychiatrist is Dr. Gomez at [facility]. He went to the emergency room because of suicidal ideations with no specific plans. He has had previous attempts with overdoses, attempts to stab himself. Additionally he recently broke up with his girlfriend of 1 year which was difficult for him. During hospital stay, Patient reports feeling depressed and anxious . Pt stated, I'm sad because my girlfriend cheated on me . He denies suicidal ideation; stated, I tried to stab myself because my girlfriend told me to do it. It was wrong, I shouldn't have done it. The knife didn't cut me or anything. I want to live; I want to have my life back and someone to love me. I also wouldn't kill myself because I don't want to go to hell . Patient reports he is looking forward to discharge because he would like to use my section 8 housing voucher since I haven't been looking for new places . He reports he plans on following up with his outpatient psychiatric providers. Increase Cymbalta to 40mg PO daily; risks/benefits discussed. Pt stated, I'm anxious cause I left my caballero card and cat with my ex and she's not answering her phone. I know I have to separate myself from the people dragging me down . Pt reports he is looking forward to being discharged and plans on finding a new apartment. Pt stated, I don't need refills on my meds because my psychiatrist already gives them to me . Pt denies SI/HI/VH/AH at this time. Plan to discharge pt on 3 day. pt reports he will follow up with outpatient psychiatric providers. Time spent discussing smoking cessation with patient: 3 to 10 minutes Status at Discharge Cognitive/behavioral status at discharge: Patient was interviewed prior to discharge and found to be fully oriented and without any SI or HI. Patient has insight and demonstrates good judgment in terms of wanting to pursue treatment. Patient is not in imminent risk of harm to self or others and has a safety plan that includes presenting to the closest ER or calling 911 if feeling unsafe. Patient has been observed closely by nursing and unit staff throughout admission; patient has not engaged in any behaviors that suggest dangerousness to self or others and has demonstrated appropriate behaviors and impulse control. Functional status at discharge: independent ambulation Overall status at discharge: patient is back to baseline Time Spent with Patient Time attestation: Total time managing care of this patient today _30___ minutes. Time spent: Less than 30 minutes Discharge Plan Discharge Anticipated Discharge Date/Time: 04/08/23 10:15 Patient Disposition: Home, Self-Care Discharge Diagnosis: MDD Referrals: Anaya Zoilal (Therapy) [Other] - 04/09/23 9:00 am (Your appointment will take place at your home -You can reach out to H[facility] as needed - work cell - ([phone]), and the voicemail is confidential. ) Gee Smart (Stitcher Operator) [Other] - 1 Week (Please follow up with your reading recovery teacher to schedule your next check in) Margarita Gomez (Psychiatry) [Other] - 04/28/23 11:20 am (IN OFFICE APPOINTMENT) Physician,Christina J [Primary Care Provider] - 1 Week Discharge Medications: New duloxetine 20 mg Capsule,Delayed Release(Dr/Ec) 40 mg PO DAILY 30 Days Qty: 60 0RF gabapentin 300 mg Capsule 600 mg PO TID 30 Days Qty: 180 0RF Continued clonidine HCl 0.1 mg tablet 0.1 mg PO TID clonazepam 1 mg tablet 1 mg PO BID hydroxyzine HCl 50 mg tablet 50 mg PO BID albuterol sulfate 90 mcg/actuation HFA aerosol inhaler 2 puff inhalation Q4H PRN (Reason: Shortness Of Breath Or Wheezing) buprenorphine HCl 8 mg Tablet, Sublingual 16 mg SUBLINGUAL QAM diphenhydramine HCl 50 mg Capsule 50 mg PO BEDTIME PRN (Reason: Insomnia) buprenorphine HCl 8 mg Tablet, Sublingual 8 mg SUBLINGUAL BEDTIME Vyvanse 20 mg Capsule 20 mg PO QAM Discontinued gabapentin 300 mg capsule 300 mg PO TID duloxetine 30 mg capsule,delayed release(DR/EC) 30 mg PO QAM Discharge Orders: Discharge Order (Routine); Ordered 04/08/23 Ordered By: Brenda Leonardo Diet: Regular diet Activity on Discharge: As tolerated Stand Alone Forms: Patient Portal Discharge page, Community Support Care Plan Goals: Maintain mood and safe behaviors Take medications as prescribed Continue to pursue sobriety Practice coping skills Continue with outpatient providers and reach out to them as needed Health Concerns: Mood stability and behaviors Sobriety Plan of Treatment: Follow up with your PCP, psychiatric provider and other outpatient providers regarding above concerns Take medications as prescribed Assessment: Patient was interviewed prior to discharge and found to be fully oriented and without any SI or HI. Patient has insight and demonstrates good judgment in terms of wanting to pursue treatment. Patient is not in imminent risk of harm to self or others and has a safety plan that includes presenting to the closest ER or calling 911 if feeling unsafe. Patient has been observed closely by nursing and unit staff throughout admission; patient has not engaged in any behaviors that suggest dangerousness to self or others and has demonstrated appropriate behaviors and impulse control. Discharge Date/Time: 04/08/23 10:34
[2023-04-08 10:00] VITALS: BMI 19.2
--- NOTE | 2023-04-08 11:11 | PC.NURSE ---
Patient's vyvanse 21 caps removed from pyxis by Pharmacy staff, Nat, and quantity verified by pharmacy and RN.
== END 2023-04-08 10:34 | disposition home or self-care (01) | DRG 881 ==
PROVIDERS: Psychiatry & Neurology Psychiatry; Admitting Provider Psychiatry & Neurology Psychiatry; Responsible Provider Registered Nurse; Visit Provider Psychiatry & Neurology Psychiatry
DX: F32.9 Major depressive disorder, single episode, unspecified (principal); R45.851 Suicidal ideations; G89.21 Chronic pain due to trauma; M54.59 Other low back pain; F41.9 Anxiety disorder, unspecified; Z91.51 Personal history of suicidal behavior; J45.909 Unspecified asthma, uncomplicated; F17.210 Nicotine dependence, cigarettes, uncomplicated; Z71.6 Tobacco abuse counseling; Z79.899 Other long term (current) drug therapy
CPT/HCPCS: 36415; 84443; 85025; J0571

== ENCOUNTER → 2023-04-02 18:19 | Outpatient (BNV) | payer OTHER, SELFPAY | PROVIDERS: Admitting Provider Psychiatry & Neurology Psychiatry; Visit Provider Psychiatry & Neurology Psychiatry | DX: F32.9 Major depressive disorder, single episode, unspecified (principal) | CPT/HCPCS: 90792; 99231; 99232; 99238 ==

== ENCOUNTER → 2023-04-02 18:19 | Outpatient (BNV) | payer OTHER, SELFPAY | PROVIDERS: Admitting Provider Psychiatry & Neurology Psychiatry; Visit Provider Nurse Practitioner Acute Care | DX: Z02.2 Encounter for examination for admission to residential institution (principal) | CPT/HCPCS: 99429 ==